=== PATIENT | male | born 2000 | race Caucasian/White ===

== ENCOUNTER 2021-03-16 09:27 | Emergency (ER) | payer BC ==
[~2021-03-16] VITALS: Ht 172.7 cm; Wt 68.0 kg
--- NOTE | 2021-03-16 09:38 | NUR ---
Pt c/o fever and dry cough, started last night, with slight CP, following an "event" held at pt's home 2 days ago. Pt denies SOB, n/v, no other complaints, no distress noted.
--- NOTE | 2021-03-16 10:39 | NUR ---
[phone] Notified pt of positive covid results.
== END 2021-03-16 09:55 | disposition home or self-care (01) ==
LOC: ER 09:27
DX: U07.1 COVID-19 (principal)
CPT/HCPCS: A4663